=== PATIENT | female | born 1955 | race Hispanic/Latino ===

== ENCOUNTER → 2024-09-24 | Outpatient (CLI) | payer BC ==
--- NOTE | 2024-09-30 17:06 | HMCSR ---
APPROVED REPORT EXAM: Two-dimensional and M-mode echocardiogram with Doppler and color Doppler. INDICATION ICD: I20.0 Unstable angina 2D Dimensions RVDd3.0 cmLVEF(%)59.3 (>50%)LVED Vol(simp.)81.0 mL IVSd1.0 (0.7-1.1cm)FS(%)31 %LVES Vol(simp.)41.0 mL LVDd4.6 (3.8-5.6cm)Ao Root(2D)3.1 (2.0-3.7cm)LVEF(%, simp.)50 % PWd1.0 (0.7-1.1cm)LVOT diam1.9 (1.8-2.4cm)LA ESV INDEX (BP)28.90 mL/m2 LVDs3.2 (2.5-4.0cm)IVC diam1.6 cm Deformation Strain Apical 4-15.0 % Apical 2-14.0 % Apical 3-14.3 % Global Strain-14.4 % Aortic Valve AoV Vmax1.2 m/Lizy Peak GR6.2 mmHgLVOT Vmax0.8 m/s AoV VTI0.3 mAo Mean GR3.5 mmHgLVOT VTI0.18 m NORBERT (VMAX)1.8 cm2AVA (VTI) 1.8 cm2 Mitral Valve MV E Vmax62.0 cm/sDECEL Jyqb571 ms MV A Uscn850.7 cm/sP 1/2 T71 ms E/A ratio0.6MVA (PHT)3.1 cm2 MR Max PG49 mmHg TDI E/E' Wvzjrv10.8E/E' Lateral9.4 Pulmonary Valve PV Vmax0.8 m/sPV VTI0.22 mPV Mean GR2 mmHg PV Peak GR2.6 mmHg Tricuspid Valve TR Vmax2.0 m/sRAP (EST) 3 ljHwVVKM09.5 mmHg TR Peak GR15.5 mmHg Left Ventricle The left ventricle structure and function is normal. There is normal LV segmental wall motion. There is normal left ventricular wall thickness. LVEF is 50-55%. GLS rate is -14.4%. Grade 1 diastolic dysf unction Right Ventricle The right ventricle is normal size. The right ventricular systolic function is normal. Atria The left atrium size is normal. The right atrium size is normal. Aortic Valve Aortic valve is trileaflet. Aortic valve leaflets are sclerotic but open well. Trace aortic regurgita tion. There is no aortic valvular stenosis. Mitral Valve Mitral valve leaflets are mildly sclerotic but open well. Mitral regurgitation is trace. There is no mitral valve stenosis. Tricuspid Valve The tricuspid valve leaflets appear normal. There is trace tricuspid regurgitation. Pulmonic Valve Pulmonic valve is not well visualized. There is trace pulmonic valvular regurgitation. Great Vessels The aortic root is normal in size. The IVC is normal in size and collapses >50% with inspiration. Pericardium No pericardial effusion. Conclusion LVEF is 50-55%. GLS rate is -14.4%. Grade 1 diastolic dysfunction There is normal LV segmental wall motion. The aortic root is normal in size. No pericardial effusion.
== END | disposition home or self-care (01) ==
LOC: SHCH 08:34
PROVIDERS: ATTEND Internal Medicine Cardiovascular Disease
DX: I20.0 Unstable angina (principal)
CPT/HCPCS: 93306; 93356